=== PATIENT | female | born 1970 | race Caucasian/White ===

== ENCOUNTER 2016-10-21 15:31 | Emergency (ER) | payer OTHER ==
--- NOTE | 2016-10-21 16:17 | DIAGNOSTIC IMAGING REPORT ---
PROCEDURE: XR HAND 3 OR 4 VIEWS - LEFT INDICATION: TRAUMA/INJURY TECHNIQUE: Four views. COMPARISON: None. FINDINGS: Osseous structures and joint spaces are normal. IMPRESSION: 1. Normal right hand.
--- NOTE | 2016-10-21 17:05 | ED NURSING NOTES ---
Clinical Report - Nurses [facility] [place] [address] 10/21/2016 15:31 Patient: BALBINA BOSS TRIAGE Triage time 15:40 Oct 21 2016. Acuity: LEVEL 3. Chief Complaint: INJURY TO LEFT HAND. Alert. VAN COMA SCORE: Van Coma Scale: 15- eyes open spontaneously (4); best verbal response- oriented x 4 (5); best motor response- obeys commands (6). --15:57 Jose Riggs R.N. 15:51 10/21/16. BP: 135/90. HR: 81. RR: 16. O2 saturation: 98% on room air. Temp: 98.4 F. Pain level now: 05/15. --15:57 Jsoe Riggs R.N. Weight: 70.3 kg stated. Height/Length: 68 inches Per Patient. BMI: 23.6. --15:42 Jose Riggs R.N. Medications None. --15:45 Jose Riggs R.N. Allergies None. --15:45 Jose Riggs R.N. Medication/allergy information source: the patient. --15:57 Jose Riggs R.N. History Arrived by private vehicle. Historian: patient. Accompanied by friend. ( Moving a large boat by herself and the hitch came down on her (L) Hand. (L) Hand Pain and the skin is broken on the (L) Palm in acouple of areas.). This occurred (about 45 minutes ago). Mechanism of injury: a blow. ( Some pain with movement of (L) middle finger). 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 PAST MEDICAL HX: Tetanus status: unknown. Immunizations: status is unknown. SOCIAL HX: Never smoker. Alcohol use; consumes two glasses of wine weekly. No drug use. No infectious disease exposure. ABUSE ASSESSMENT: No report of abuse. FALL RISK ASSESSMENT: Fall risk assessment completed. No fall risk identified. NUTRITIONAL RISK ASSESSMENT: The nutritional risk assessment revealed no deficiencies. FUNCTIONAL ASSESSMENT: Functional assessment: no impairments noted. LEARNING NEEDS ASSESSMENT: The learning needs assessment revealed no barriers. SKIN INTEGRITY ASSESSMENT: Skin integrity risk assessment completed. No skin integrity risk identified. --15:57 Jose Riggs R.N. PROBLEMS: Thyroid Disease. Ovarian Cyst. --15:55 Jose Riggs R.N. ADDITIONAL SURGERIES: . --15:55 Jose Riggs R.N. Interventions ID band on patient. To treatment room. --15:57 Jose Riggs R.N. PHYSICAL ASSESSMENT Ambulatory to room. GENERAL / NEURO / PSYCH: Oriented X 4. Appears in pain. EXTREMITIES: Capillary refill is less than 2 seconds in the extremities. Extremity pulses are within normal limits. Left hand: tenderness. SKIN: Skin is warm and dry. She has an abrasion on the left hand. --15:57 Jose Riggs R.N. NURSING PROGRESS NOTES Patient identifiers checked. Call light placed in reach. Side rails up x 1. Bed placed in lowest position. Brakes of bed on. Patient ready for evaluation- chart flagged and ED physician notified. --15:58 Jose Riggs R.N. 16:00 10/21/16. Wound cleansed with water and chlorhexidine (abrasions on (L) Hand). --16:03 Jose Riggs R.N. 16:07 10/21/2016 TDAP IM 0.5 mL given. (Lot#: [id number], expiration date: 07/10/2018, Fuel Yard Operator: sanofi pasteur). Given in the right deltoid. Allergies verified and confirmed 5 rights. Vaccine information statement provided to the patient. --16:12 Jose Riggs R.N. 16:30. Applied sterile dressing, following the application of antibiotic ointment (bacitracin). Secured with kerlix. --21:41 Jose Riggs R.N. DISPOSITION / DISCHARGE Departure time: 1715. --21:15 Jose Riggs R.N. 17:10 10/21/16. BP: 128/88. HR: 78. RR: 16. O2 saturation: 99% on room air. Temp: 98.6 F (oral). Pain level now: 02/12. --21:19 Jose Riggs R.N. 17:15. Condition at departure: improved. No learning barriers present. Discharge instructions provided and reviewed with the patient. Reviewed medication(s) (prescription given to pt). Reviewed referral to family practice for followup. Patient verbalized understanding. Written instructions provided in Khmer. The patient was discharged by the physician. She was discharged home and accompanied by conference translator. She left the Emergency Department ambulatory and via private vehicle. Mud Logger driving. --21:40 Jose Riggs R.N. Locked/Released at 10/21/2016 21:45 by Jose Riggs R.N.
--- NOTE | 2016-10-21 17:05 | ED CLINICAL REPORT ---
Clinical Report - Physicians/Mid Levels [facility] [address] [place] [address] 10/21/2016 15:31 [id number] Time Seen: 15:40 Oct 21 2016. Arrived- By private vehicle. Historian- patient. HISTORY OF PRESENT ILLNESS Chief Complaint: Injury to the left hand. The injury happened just prior to arrival. The patient sustained a laceration and crush injury. Occurred at home. Patient is experiencing mild pain. ( heavy object vs hand). REVIEW OF SYSTEMS All systems otherwise negative, except as recorded above. PAST HISTORY The patient's dominant hand is the right. She has not had a prior injury to the same area. Tetanus immunization status is unknown. SOCIAL HISTORY Never smoker. Alcohol use. ADDITIONAL NOTES The nursing notes have been reviewed. PHYSICAL EXAM Vital Signs: 10/21/2016 15:51 BP: 135/90. HR: 81. RR: 16. O2 saturation: 98%. Temp: 98.4 F. Pain level now: 8/10. Appearance: Alert. No acute distress. Head: Head atraumatic. Eyes: Pupils equal, round and reactive to light. Eyes normal inspection. ENT: Ears normal. Nose normal. Pharynx normal. Neck: Normal inspection. Neck supple. CVS: Normal heart rate and rhythm. Heart sounds normal. Pulses normal. No cardiac murmur. Respiratory: No respiratory distress. Breath sounds normal. Abdomen: No visible injury. Soft. Skin: (small mid phalenx 3rd digit skin flap/ abrasion, and mcp gimenez abrasion of 3rd digit). Extremities: Left hand web space: abrasion. No ecchymosis or puncture wound. Left middle finger: ecchymosis and small abrasion. No wrist injury. Neuro, Vascular and Tendons: Vascular status intact. Motor intact. LABS, X-RAYS, AND EKG Lt Hand X-ray: (IMPRESSION: 1. Normal right hand. Electronically Final signed by:Joel Nunez MD 10/21/2016 4:20:39 PM). PROGRESS AND PROCEDURES Course of Care: Patient here in the ER, with no signs of fracture, full range of motion, no signs of secondary infection, irrigated, superficial in nature, stable. All palpation. Full range of motion, no signs of tendon or ligament injury. Good distal neurovascular chart. Patient is stable. Physical exam findings are improved. Symptoms better. Patient/family counseled. Disposition: Discharged. CLINICAL IMPRESSION Multiple superficial abrasions to the right hand and right middle finger. INSTRUCTIONS Protect wound and keep wound area clean. Apply bacitracin twice daily. Prescription Medications: Tylenol with Codeine Tylenol #3 (30 mg / 300 mg) : take 1 tablet orally every 6 hours as needed for pain. Dispense ten (10). No refill. Substitution is permissible. OTC Medications: Motrin IB 200 mg (available over the counter): take 4 orally every 8 hours for 5 days, as needed for pain Follow-up: Follow up with your doctor in four days as needed and for wound check. (Electronically signed by Clemencia Hancock P.A.-C 10/21/2016 17:37)
--- NOTE | 2016-10-21 17:05 | ED ORDER SUMMARY ---
..... Patient: BALBINA BOSS OrderSheet [facility] VisitID: [id number] [place] [address] 46y, F Registration Date/Time: 10/21/2016 ORDER SHEET Weight: 70.3 kg (stated) Allergies: None GENERAL ORDERS: Hand 3 or 4V Left Urgent (15:39 10/21/2016 JRomanelli R.N. verbal order read back to EKoroleva P.A.-C) (Ack 15:48 LTapper) (16:03 JRomanelli R.N.) Irrigate Wounds (16:13 10/21/2016 Alondraelli R.N. verbal order read back to EKoroleva P.A.-C) (16:13 JRomanelli R.N.) MEDICATION ORDERS: Tdap IM 0.5 mL (NOW, per protocol) (16:03 10/21/2016 EKoroleva P.A.-C) (16:12 omanelli R.N.) Tdap IM 0.5 mL (NOW, per protocol) (16:06 10/21/2016 JRomanelli R.N. verbal order read back to EKoroleva P.A.-C) (Cancelled: Duplicate Order16:06 Alondraelli R.N.) Tylenol w Codeine PO 2 tabs (HIGH ALERT MEDICATION, NOW) (17:05 10/21/2016 EKoroleva P.A.-C) (Cancelled: Other21:44 omanelli R.N.) Motrin PO 800 mg (NOW) (17:05 10/21/2016 EKoroleva P.A.-C) (Cancelled: Other21:44 omanelli R.N.) IV FLUIDS: ORDER SHEET NOTES: [Electronically signed by Clemencia HancockASampson-Giselle (17:37 10/21/2016)] [Electronically signed by Jose Riggs R.N. (21:45 10/21/2016)] [Electronically locked/signed by Jose Riggs R.N. (21:45 10/21/2016)]
--- NOTE | 2016-10-21 17:05 | ED CLINICAL REPORT ---
Clinical Report - Physicians/Mid Levels [facility] [address] [place] [address] 10/21/2016 15:31 [id number] Time Seen: 15:40 Oct 21 2016. Arrived- By private vehicle. Historian- patient. HISTORY OF PRESENT ILLNESS Chief Complaint: Injury to the left hand. The injury happened just prior to arrival. The patient sustained a laceration and crush injury. Occurred at home. Patient is experiencing mild pain. ( heavy object vs hand). REVIEW OF SYSTEMS All systems otherwise negative, except as recorded above. PAST HISTORY The patient's dominant hand is the right. She has not had a prior injury to the same area. Tetanus immunization status is unknown. SOCIAL HISTORY Never smoker. Alcohol use. ADDITIONAL NOTES The nursing notes have been reviewed. PHYSICAL EXAM Vital Signs: 10/21/2016 15:51 BP: 135/90. HR: 81. RR: 16. O2 saturation: 98%. Temp: 98.4 F. Pain level now: 8/10. Appearance: Alert. No acute distress. Head: Head atraumatic. Eyes: Pupils equal, round and reactive to light. Eyes normal inspection. ENT: Ears normal. Nose normal. Pharynx normal. Neck: Normal inspection. Neck supple. CVS: Normal heart rate and rhythm. Heart sounds normal. Pulses normal. No cardiac murmur. Respiratory: No respiratory distress. Breath sounds normal. Abdomen: No visible injury. Soft. Skin: (small mid phalenx 3rd digit skin flap/ abrasion, and mcp gimenez abrasion of 3rd digit). Extremities: Left hand web space: abrasion. No ecchymosis or puncture wound. Left middle finger: ecchymosis and small abrasion. No wrist injury. Neuro, Vascular and Tendons: Vascular status intact. Motor intact. LABS, X-RAYS, AND EKG Lt Hand X-ray: (IMPRESSION: 1. Normal right hand. Electronically Final signed by:Joel Nunez MD 10/21/2016 4:20:39 PM). PROGRESS AND PROCEDURES Course of Care: Patient here in the ER, with no signs of fracture, full range of motion, no signs of secondary infection, irrigated, superficial in nature, stable. All palpation. Full range of motion, no signs of tendon or ligament injury. Good distal neurovascular chart. Patient is stable. Physical exam findings are improved. Symptoms better. Patient/family counseled. Disposition: Discharged. CLINICAL IMPRESSION Multiple superficial abrasions to the right hand and right middle finger. INSTRUCTIONS Protect wound and keep wound area clean. Apply bacitracin twice daily. Prescription Medications: Tylenol with Codeine Tylenol #3 (30 mg / 300 mg) : take 1 tablet orally every 6 hours as needed for pain. Dispense ten (10). No refill. Substitution is permissible. OTC Medications: Motrin IB 200 mg (available over the counter): take 4 orally every 8 hours for 5 days, as needed for pain Follow-up: Follow up with your doctor in four days as needed and for wound check. (Electronically signed by Clemencia Hancock P.A.-C 10/21/2016 17:37)
--- NOTE | 2016-10-21 17:05 | ED NURSING NOTES ---
Clinical Report - Nurses [facility] [place] [address] 10/21/2016 15:31 Patient: BALBINA BOSS TRIAGE Triage time 15:40 Oct 21 2016. Acuity: LEVEL 3. Chief Complaint: INJURY TO LEFT HAND. Alert. VAN COMA SCORE: Van Coma Scale: 15- eyes open spontaneously (4); best verbal response- oriented x 4 (5); best motor response- obeys commands (6). --15:57 Jose Riggs R.N. 15:51 10/21/16. BP: 135/90. HR: 81. RR: 16. O2 saturation: 98% on room air. Temp: 98.4 F. Pain level now: 05/15. --15:57 Jose Riggs R.N. Weight: 70.3 kg stated. Height/Length: 68 inches Per Patient. BMI: 23.6. --15:42 Jose Riggs R.N. Medications None. --15:45 Jose Riggs R.N. Allergies None. --15:45 Jose Riggs R.N. Medication/allergy information source: the patient. --15:57 Jose Riggs R.N. History Arrived by private vehicle. Historian: patient. Accompanied by friend. ( Moving a large boat by herself and the hitch came down on her (L) Hand. (L) Hand Pain and the skin is broken on the (L) Palm in acouple of areas.). This occurred (about 45 minutes ago). Mechanism of injury: a blow. ( Some pain with movement of (L) middle finger). Treatment AUTOMATION QTP TESTER: Ice. PAST MEDICAL HX: Tetanus status: unknown. Immunizations: status is unknown. SOCIAL HX: Never smoker. Alcohol use; consumes two glasses of wine weekly. No drug use. No infectious disease exposure. ABUSE ASSESSMENT: No report of abuse. FALL RISK ASSESSMENT: Fall risk assessment completed. No fall risk identified. NUTRITIONAL RISK ASSESSMENT: The nutritional risk assessment revealed no deficiencies. FUNCTIONAL ASSESSMENT: Functional assessment: no impairments noted. LEARNING NEEDS ASSESSMENT: The learning needs assessment revealed no barriers. SKIN INTEGRITY ASSESSMENT: Skin integrity risk assessment completed. No skin integrity risk identified. --15:57 Jose Riggs R.N. PROBLEMS: Thyroid Disease. Ovarian Cyst. --15:55 Jose Riggs R.N. ADDITIONAL SURGERIES: . --15:55 Jose Riggs R.N. Interventions ID band on patient. To treatment room. --15:57 Jose Riggs R.N. PHYSICAL ASSESSMENT Ambulatory to room. GENERAL / NEURO / PSYCH: Oriented X 4. Appears in pain. EXTREMITIES: Capillary refill is less than 2 seconds in the extremities. Extremity pulses are within normal limits. Left hand: tenderness. SKIN: Skin is warm and dry. She has an abrasion on the left hand. --15:57 Jose Riggs R.N. NURSING PROGRESS NOTES Patient identifiers checked. Call light placed in reach. Side rails up x 1. Bed placed in lowest position. Brakes of bed on. Patient ready for evaluation- chart flagged and ED physician notified. --15:58 Jose Riggs R.N. 16:00 10/21/16. Wound cleansed with water and chlorhexidine (abrasions on (L) Hand). --16:03 Jose Riggs R.N. 16:07 10/21/2016 TDAP IM 0.5 mL given. (Lot#: [id number], expiration date: 07/10/2018, Probate Judge: sanofi pasteur). Given in the right deltoid. Allergies verified and confirmed 5 rights. Vaccine information statement provided to the patient. --16:12 Jose Riggs R.N. 16:30. Applied sterile dressing, following the application of antibiotic ointment (bacitracin). Secured with kerlix. --21:41 Jose Riggs R.N. DISPOSITION / DISCHARGE Departure time: 1715. --21:15 Jose Riggs R.N. 17:10 10/21/16. BP: 128/88. HR: 78. RR: 16. O2 saturation: 99% on room air. Temp: 98.6 F (oral). Pain level now: 02/12. --21:19 Jose Riggs R.N. 17:15. Condition at departure: improved. No learning barriers present. Discharge instructions provided and reviewed with the patient. Reviewed medication(s) (prescription given to pt). Reviewed referral to family practice for followup. Patient verbalized understanding. Written instructions provided in Albanian. The patient was discharged by the physician. She was discharged home and accompanied by furniture repair technician. She left the Emergency Department ambulatory and via private vehicle. Insulation Cutter And Former driving. --21:40 Jose Riggs R.N. Locked/Released at 10/21/2016 21:45 by Jose Riggs R.N.
--- NOTE | 2016-10-21 17:05 | ED ORDER SUMMARY ---
..... Patient: BALBINA BOSS OrderSheet [facility] VisitID: [id number] [place] [address] 46y, F Registration Date/Time: 10/21/2016 ORDER SHEET Weight: 70.3 kg (stated) Allergies: None GENERAL ORDERS: Hand 3 or 4V Left Urgent (15:39 10/21/2016 JRomanelli R.N. verbal order read back to EKoroleva P.A.-C) (Ack 15:48 LTapper) (16:03 JRomanelli R.N.) Irrigate Wounds (16:13 10/21/2016 Alondraelli R.N. verbal order read back to EKoroleva P.A.-C) (16:13 JRomanelli R.N.) MEDICATION ORDERS: Tdap IM 0.5 mL (NOW, per protocol) (16:03 10/21/2016 EKoroleva P.A.-C) (16:12 omanelli R.N.) Tdap IM 0.5 mL (NOW, per protocol) (16:06 10/21/2016 JRomanelli R.N. verbal order read back to EKoroleva P.A.-C) (Cancelled: Duplicate Order16:06 Alondraelli R.N.) Tylenol w Codeine PO 2 tabs (HIGH ALERT MEDICATION, NOW) (17:05 10/21/2016 EKoroleva P.A.-C) (Cancelled: Other21:44 omanelli R.N.) Motrin PO 800 mg (NOW) (17:05 10/21/2016 EKoroleva P.A.-C) (Cancelled: Other21:44 omanelli R.N.) IV FLUIDS: ORDER SHEET NOTES: [Electronically signed by Clemencia HancockASampson-Giselle (17:37 10/21/2016)] [Electronically signed by Jose Riggs R.N. (21:45 10/21/2016)] [Electronically locked/signed by Jose Riggs R.N. (21:45 10/21/2016)]
--- NOTE | 2016-10-21 21:45 | ED MAR SUMMARY ---
..... Medication Administration Record [facility] [address] [place] [address] Patient: BALBINA BOSS Visit ID: [id number] 46y, F Weight: 70.3 kg Height/Length: 68 in BMI: 23.6 ALLERGIES: None Given 16:07 10/21/2016 Jose Riggs R.N. Medication Administered: TDAP [IM], Dose: 0.5 mL IM. Medication Ordered: Tdap IM 0.5 mL (NOW, per protocol).
--- NOTE | 2016-10-21 21:45 | ED MAR SUMMARY ---
..... Medication Administration Record [facility] [address] [place] [address] Patient: BALBINA BOSS Visit ID: [id number] 46y, F Weight: 70.3 kg Height/Length: 68 in BMI: 23.6 ALLERGIES: None Given 16:07 10/21/2016 Jose Riggs R.N. Medication Administered: TDAP [IM], Dose: 0.5 mL IM. Medication Ordered: Tdap IM 0.5 mL (NOW, per protocol).
--- NOTE | 2016-10-21 21:45 | ED DISCHARGE INSTRUCTIONS ---
Patient: BALBINA BOSS General Instructions VisitID: [id number] [place] [address] 46y, F Registration Date/Time: 10/21/2016 Multiple superficial abrasions to the right hand and right middle finger. INSTRUCTIONS Protect wound and keep wound area clean. Apply bacitracin twice daily. Prescription Medications: Tylenol with Codeine Tylenol #3 (30 mg / 300 mg) : take 1 tablet orally every 6 hours as needed for pain. Dispense ten (10). No refill. Substitution is permissible. OTC Medications: Motrin IB 200 mg (available over the counter): take 4 orally every 8 hours for 5 days, as needed for pain Follow-up: Follow up with your doctor in four days as needed and for wound check. ADDITIONAL INFORMATION Abrasions Abrasions are skin scrapes. Their treatment depends on how large and deep the abrasion is. Home Care: If you were given a bandage, change it once a day. If your bandage sticks to the wound, soak it in warm water until it loosens. Wash the area with soap and water to remove all the cream/ointment. You may do this in a sink, under a tub faucet or shower. Rinse off the soap and pat dry with a clean towel. Reapply cream/ointment according to your doctor's instructions. This will prevent infection and help prevent the bandage from sticking. Cover the wound with a fresh non-stick bandage (Telfa). Repeat steps 1 to 4 daily, or as directed by your doctor. If the bandage becomes wet or dirty, change it as soon as possible. You may use acetaminophen (Tylenol) or ibuprofen (Motrin, Advil) to control pain, unless another pain medicine was prescribed. [ NOTE : If you have chronic liver or kidney disease or ever had a stomach ulcer or GI bleeding, talk with your doctor before using these medicines.] Do not use ibuprofen in children under six months of age. Follow Up with your physician or this facility as directed by our staff. Most skin wounds heal within ten days. However, an infection may occur despite proper treatment. Therefore, look for the early signs of infection listed below. Get Prompt Medical Attention if any of the following occur: Increasing pain in the wound Increasing redness or swelling Pus coming from the wound Fever of 100.4F (38C) or higher, or as directed by your healthcare provider Acetaminophen, Codeine Phosphate Oral tablet What is this medicine? ACETAMINOPHEN; CODEINE (a set a LEIGHA sharan eldridge; SUZI chavez) is a pain reliever. It is used to treat mild to moderate pain. How should I use this medicine? Take this medicine by mouth with a full glass of water. Follow the directions on the prescription label. If the medicine upsets your stomach, take the medicine with food or milk. Do not take more medicine than you are told to take. Talk to your senior research manager regarding the use of this medicine in children. Special care may be needed. What side effects may I notice from receiving this medicine? Side effects that you should report to your doctor or health resident care manager rn as soon as possible: allergic reactions like skin rash, itching or hives, swelling of the face, lips, or tongue breathing difficulties, wheezing confusion light headedness or fainting spells severe stomach pain yellowing of the skin or the whites of the eyes Side effects that usually do not require medical attention (report to your doctor or health resident care manager rn if they continue or are bothersome): dizziness drowsiness nausea, vomiting What may interact with this medicine? alcohol antihistamines benztropine drugs for bladder problems like solifenacin, trospium, oxybutynin, tolterodine, hycosamine, and methscopolamine drugs for breathing problems like ipratropium and tiotropium drugs for certain stomach or intestine problems like propantheline, homatropine methylbromide, glycopyrrolate, atropine, belladonna, and dicyclomine medicines for depression, anxiety, or psychotic disturbances medicines for sleep muscle relaxants naltrexone narcotic medicines (opiates) for pain phenothiazines like perphenazine, thioridazine, chlorpromazine, mesoridazine, fluphenazine, prochlorperazine, promazine, trifluoperazine scopolamine tramadol trihexyphenidyl What if I miss a dose? If you miss a dose, take it as soon as you can. If it is almost time for your next dose, take only that dose. Do not take double or extra doses. Where should I keep my medicine? Keep out of the reach of children. This medicine can be abused. Keep your medicine in a safe place to protect it from theft. Do not share this medicine with anyone. Selling or giving away this medicine is dangerous and against the law. Store at room temperature between 15 and 30 degrees C (59 and 86 degrees F). Protect from light. Keep container tightly closed. Throw away any unused medicine after the expiration date. Discard unused medicine and used packaging carefully. Pets and children can be harmed if they find used or lost packages. What should I tell my health care provider before I take this medicine? They need to know if you have any of these conditions: brain tumor Crohn's disease, inflammatory bowel disease, or ulcerative colitis drink more than 3 alcohol containing drinks per day drug abuse or addiction head injury heart or circulation problems kidney disease or problems going to the bathroom liver disease lung disease, asthma, or breathing problems an unusual or allergic reaction to acetaminophen, codeine, salicylates, other opioid analgesics, other medicines, foods, dyes, or preservatives or trying to get breast-feeding What should I watch for while using this medicine? Tell your doctor or health resident care manager rn if your pain does not go away, if it gets worse, or if you have new or a different type of pain. You may develop tolerance to the medication. Tolerance means that you will need a higher dose of the medication for pain relief. Tolerance is normal and is expected if you take the medicine for a long time. Do not suddenly stop taking your medicine because you may develop a severe reaction. Your body becomes used to the medicine. This does NOT mean you are addicted. Addiction is a behavior related to getting and using a drug for a non medical reason. If you have pain, you have a medical reason to take pain medicine. Your doctor will tell you how much medicine to take. If your doctor wants you to stop the medicine, the dose will be slowly lowered over time to avoid any side effects. You may get drowsy or dizzy. Do not drive, use machinery, or do anything that needs mental alertness until you know how this medicine affects you. Do not stand or sit up quickly, especially if you are an older patient. This reduces the risk of dizzy or fainting spells. Alcohol may interfere with the effect of this medicine. Avoid alcoholic drinks. There are different types of narcotic medicines (opiates) for pain. If you take more than one type at the same time, you may have more side effects. Give your health care provider a list of all medicines you use. Your doctor will tell you how much medicine to take. Do not take more medicine than directed. Call emergency for help if you have problems breathing. The medicine will cause constipation. Try to have a bowel movement at least every 2 to 3 days. If you do not have a bowel movement for 3 days, call your doctor or health resident care manager rn. Do not take Tylenol (acetaminophen) or medicines that have acetaminophen with this medicine. Too much acetaminophen can be very dangerous. Many nonprescription medicines contain acetaminophen. Always read the labels carefully to avoid taking more acetaminophen. Immediately call your physician or get emergency help if you are breast-feeding and your baby is sleepier than usual, is limp, or has difficulty or breathing. Ibuprofen Oral tablet What is this medicine? IBUPROFEN (eye BYOO proe fen) is a non-steroidal anti-inflammatory drug (NSAID). It is used for dental pain, fever, headaches or migraines, osteoarthritis, rheumatoid arthritis, or painful monthly periods. It can also relieve minor aches and pains caused by a cold, flu, or sore throat. How should I use this medicine? Take this medicine by mouth with a glass of water. Follow the directions on the prescription label. Take this medicine with food if your stomach gets upset. Try to not lie down for at least 10 minutes after you take the medicine. Take your medicine at regular intervals. Do not take your medicine more often than directed. A special MedGuide will be given to you by the pharmacist with each prescription and refill. Be sure to read this information carefully each time. Talk to your senior research manager regarding the use of this medicine in children. Special care may be needed. What side effects may I notice from receiving this medicine? Side effects that you should report to your doctor or health resident care manager rn as soon as possible: allergic reactions like skin rash, itching or hives, swelling of the face, lips, or tongue black or bloody stools, blood in the urine or in vomit breathing problems changes in vision chest pain general ill feeling or flu-like symptoms nausea or vomiting redness, blistering, peeling or loosening of the skin, including inside the mouth slurred speech or weakness on one side of the body stomach pain unexplained weight gain or swelling unusually weak or tired yellowing of eyes or skin Side effects that usually do not require medical attention (report to your doctor or health resident care manager rn if they continue or are bothersome): constipation or diarrhea dizziness gas or heartburn stomach upset What may interact with this medicine? Do not take this medicine with any of the following medications: cidofovir ketorolac methotrexate pemetrexed This medicine may also interact with the following medications: alcohol aspirin diuretics lithium other drugs for inflammation like prednisone warfarin What if I miss a dose? If you miss a dose, take it as soon as you can. If it is almost time for your next dose, take only that dose. Do not take double or extra doses. Where should I keep my medicine? Keep out of the reach of children. Store at room temperature between 15 and 30 degrees C (59 and 86 degrees F). Keep container tightly closed. Throw away any unused medicine after the expiration date. What should I tell my health care provider before I take this medicine? They need to know if you have any of these conditions: asthma cigarette smoker drink more than 3 alcohol containing drinks a day heart disease or circulation problems such as heart failure or leg edema (fluid retention) high blood pressure kidney disease liver disease stomach bleeding or ulcers an unusual or allergic reaction to ibuprofen, aspirin, other NSAIDS, other medicines, foods, dyes, or preservatives or trying to get breast-feeding What should I watch for while using this medicine? Tell your doctor or healthcare professional if your symptoms do not start to get better or if they get worse. This medicine does not prevent heart attack or stroke. In fact, this medicine may increase the chance of a heart attack or stroke. The chance may increase with longer use of this medicine and in people who have heart disease. If you take aspirin to prevent heart attack or stroke, talk with your doctor or health resident care manager rn. Do not take other medicines that contain aspirin, ibuprofen, or naproxen with this medicine. Side effects such as stomach upset, nausea, or ulcers may be more likely to occur. Many medicines available without a prescription should not be taken with this medicine. This medicine can cause ulcers and bleeding in the stomach and intestines at any time during treatment. Ulcers and bleeding can happen without warning symptoms and can cause . To reduce your risk, do not smoke cigarettes or drink alcohol while you are taking this medicine. You may get drowsy or dizzy. Do not drive, use machinery, or do anything that needs mental alertness until you know how this medicine affects you. Do not stand or sit up quickly, especially if you are an older patient. This reduces the risk of dizzy or fainting spells. This medicine can cause you to bleed more easily. Try to avoid damage to your teeth and gums when you brush or floss your teeth. You have been given the following additional information: Abrasion Acetaminophen, Codeine Phosphate Oral tablet Ibuprofen Oral tablet (Electronically signed by Clemencia Hancock P.A.-C 10/21/2016 17:37)
--- NOTE | 2016-10-21 21:45 | ED MED RECONCILIATION SUMMARY ---
Patient: BALBINA BOSS Medication Reconciliation Report [facility] VisitID: [id number] [place] [address] 46y, F Registration Date/Time: 10/21/2016 Weight: 70.3 kg Height/Length: 68 in. BMI: 23.6 ALLERGIES: None The patient's Home Medications are listed below: NONE. The source(s) of the original Home Medication information: patient The following Medications were given to the patient in the Emergency Department: TDAP [IM] IM 0.5 mL, administered: 10/21/2016 4:07:00 PM The following Medications were prescribed to the patient: Motrin IB 200 mg (available over the counter): take 4 orally every 8 hours for 5 days, as needed for pain -- Clemencia Hancock, P.A.-C Tylenol with Codeine Tylenol #3 (30 mg / 300 mg) : take 1 tablet orally every 6 hours as needed for pain. Dispense ten (10). No refill. Substitution is permissible. -- Clemencia Hancock, P.A.-C
--- NOTE | 2016-10-21 21:45 | ED MED RECONCILIATION SUMMARY ---
Patient: BALBINA BOSS Medication Reconciliation Report [facility] VisitID: [id number] [place] [address] 46y, F Registration Date/Time: 10/21/2016 Weight: 70.3 kg Height/Length: 68 in. BMI: 23.6 ALLERGIES: None The patient's Home Medications are listed below: NONE. The source(s) of the original Home Medication information: patient The following Medications were given to the patient in the Emergency Department: TDAP [IM] IM 0.5 mL, administered: 10/21/2016 4:07:00 PM The following Medications were prescribed to the patient: Motrin IB 200 mg (available over the counter): take 4 orally every 8 hours for 5 days, as needed for pain -- Clemencia Hancock, P.A.-C Tylenol with Codeine Tylenol #3 (30 mg / 300 mg) : take 1 tablet orally every 6 hours as needed for pain. Dispense ten (10). No refill. Substitution is permissible. -- Clemencia Hancock, P.A.-C
== END 2016-10-21 17:15 | disposition home or self-care (01) ==
LOC: ED SRH 15:31
DX: S60.412A Abrasion of right middle finger, initial encounter (principal); S60.511A Abrasion of right hand, initial encounter; W22.8XXA Striking against or struck by other objects, initial encounter; Y93.89 Activity, other specified; Y99.9 Unspecified external cause status; Y92.009 Unspecified place in unspecified non-institutional (private) residence as the place of occurrence of the external cause; Z23 Encounter for immunization